=== PATIENT | male | born 1950 | race Caucasian/White ===

== ENCOUNTER → 2019-05-07 | Outpatient (CLI) | payer OTHER | LOC: HYPER 16:50 | DX: T81.89XD Other complications of procedures, not elsewhere classified, subsequent encounter (principal); S91.002A Unspecified open wound, left ankle, initial encounter; S90.812A Abrasion, left foot, initial encounter; L03.116 Cellulitis of left lower limb; N18.6 End stage renal disease; K21.9 Gastro-esophageal reflux disease without esophagitis; D64.9 Anemia, unspecified; M19.90 Unspecified osteoarthritis, unspecified site; B35.1 Tinea unguium; F41.9 Anxiety disorder, unspecified; Z96.9 Presence of functional implant, unspecified; X58.XXXA Exposure to other specified factors, initial encounter; Y93.89 Activity, other specified; Y92.89 Other specified places as the place of occurrence of the external cause; Y99.8 Other external cause status; Y83.8 Other surgical procedures as the cause of abnormal reaction of the patient, or of later complication, without mention of misadventure at the time of the procedure ==